=== PATIENT | female | born 1960 | race Caucasian/White ===

== ENCOUNTER → 2018-06-02 13:02 | Outpatient (POV) | payer MEDICARE, BC, SELFPAY ==
[2018-06-02 14:58] LABS: Anion Gap 14.4 mEq/L (5-15); Blood Urea Nitrogen 16 mg/dL (7-18); Calcium 8.4 mg/dL (8.5-10.1); Carbon Dioxide 26 mmol/L (21.0-32.0); Chloride 104 mmol/L (98-107); Creatinine,Serum 0.58 mg/dL (0.55-1.02); Estimated Glomerular Filt Rate 106 ml/min (>60); GFR (African American) 129 ML/MIN (>60); Glucose 104 mg/dL (74-106); Potassium 4.4 mmoL/L (3.5-5.1); Sodium 140 mmol/L (136-145)
== END ==
PROVIDERS: Visit Provider Nurse Practitioner Acute Care
DX: R10.9 Unspecified abdominal pain (principal)
CPT/HCPCS: 36415; 80048

== ENCOUNTER → 2018-06-11 08:53 | Outpatient (CLI) | payer MEDICARE, BC, SELFPAY ==
--- NOTE | 2018-06-11 08:55 | CT_ITS ---
CT abdomen pelvis w con CLINICAL INDICATION: Left-sided abdominal pain, change in bowel habits ITS.REASON: ABD PAIN, CHANGE IN BOWL HABITS ORDERING PHYSICIAN: Shelia Hager PATIENT AGE: 58 years COMPARISON: 08/09/2017 TECHNIQUE: Axial images obtained with sagittal and coronal reformats. All CT scans at the facility use one or more dose reduction, viz: automated exposure control, ma/kV adjustment per patient size (including targeted exams where dose is matched to indication, i.e. head), or iterative reconstruction technique. PROCEDURE: Oral Contrast: Redicat IV Contrast: 75 mL Isovue-370. FINDINGS: Lower thorax: 3 mm nodular opacity right lung base anteriorly nonspecific. There are mild fibrotic changes in the left lung base The liver, spleen, adrenal glands, gallbladder, and kidneys have an unremarkable appearance. There is a mild amount of retained colonic feces throughout the colon. No evidence of intestinal obstruction or free air. The appendix has an unremarkable appearance. Post hysterectomy changes. No acute bony findings. Small sclerotic density involves the L2 vertebral body which may represent bone island unchanged IMPRESSION: No change with no acute finding. Moderate amount retained colonic feces throughout colon.
== END ==
PROVIDERS: PCP Family Medicine; Visit Provider Nurse Practitioner Acute Care
DX: R10.9 Unspecified abdominal pain (principal); R19.4 Change in bowel habit
CPT/HCPCS: 74177; Q9967

== ENCOUNTER → 2019-03-16 10:09 | Outpatient (POV) | payer MEDICARE, BC, SELFPAY | PROVIDERS: Visit Provider Nurse Practitioner Family | DX: Z00.00 Encounter for general adult medical examination without abnormal findings (principal) ==

== ENCOUNTER → 2021-03-13 10:02 | Outpatient (CLI) | payer MEDICARE, BC, SELFPAY ==
--- NOTE | 2021-03-13 10:08 | CT_ITS ---
PROCEDURE: CT ABDOMEN PELVIS W CON CLINICAL INDICATION: ABD PAIN COMPARISON: CT ABDPELW CT abdomen pelvis w con from 06/11/2018 TECHNIQUE: IV Contrast: 75ML Isovue 370 Oral Contrast 450ml Redicat Axial images obtained with sagittal and coronal reformats. All CT scans at the facility use one or more dose reduction, viz: automated exposure control, ma/kV adjustment per patient size (including targeted exams where dose is matched to indication, i.e. head), or iterative reconstruction technique. FINDINGS: LOWER THORAX: No acute finding ABDOMEN & PELVIS: The liver, spleen, adrenal glands, and pancreas have an unremarkable appearance. No renal or ureteral calculi apparent. Gallbladder appears slightly contracted with mildly thickened wall. No intestinal obstruction or free air. No evidence of appendicitis. No evidence of diverticulitis. There is some minimal haziness of the mesenteric fat inferior to the splenic flexure. This is nonspecific and could represent an area of fat necrosis or epiploic appendagitis. This does not have a typical appearance for diverticulitis. No diverticula are identified. Prior hysterectomy. No pelvic mass or abnormal fluid collection. There is a sclerotic focus involving the L2 vertebral body and may represent a bone island not significantly changed. IMPRESSION: 1. Small area of haziness of the mesenteric fat inferior to the splenic flexure non specific and could represent a small area of fat necrosis or epiploic appendagitis. 2. No other significant anomalies evident. Dictated by: Edilberto De Leon MD 03/14/2021 15:00 Edilberto De Leon MD in [place] 03/14/2021 15:00
== END ==
PROVIDERS: PCP Family Medicine; Visit Provider Family Medicine
DX: R10.9 Unspecified abdominal pain (principal)
CPT/HCPCS: 74177; Q9967

== ENCOUNTER 2021-05-01 18:47 | Emergency (ER) | payer MEDICARE, BC, SELFPAY ==
[2021-05-01 18:47] VITALS: BP 97/48; PULSE 77; RESP 18; TEMP 37.1; O2SAT 96; BMI 28.0
[2021-05-01 18:58] VITALS: BP 97/48; PULSE 77; RESP 18; TEMP 37.1; O2SAT 96; BMI 28.2
--- NOTE | 2021-05-01 19:28 | [facility].EDGENADL ---
ED Disposition Clinical Impression: Left hip pain Low back pain Qualifiers: Chronicity: chronic Back pain laterality: left Sciatica presence: with sciatica Sciatica laterality: sciatica of left side Qualified Code(s): M54.42 - Lumbago with sciatica, left side Disposition: Home, Self-Care Condition on Discharge: Fair Instructions: DI for Low Back Pain, DI for Hip Pain Additional Instructions: You have been evaluated for left hip pain. Likely due to arthritic changes and nerve impingement. Please take prednisone taper. Use Voltaren gel. Use heat, stretching exercises. Follow-up with your primary care doctor in 1 to 2 days. Return to the emergency department for any new or worsening symptoms. Prescriptions: predniSONE [Prednisone 10mg Tab Dose-Pack] 10 mg PO DAILY #15 predniSONE [Prednisone 10mg Tab Dose-Pack] 10 mg PO DAILY 5 Days #15 tab Transmission Status: Received by [id number] - [facility] Diclofenac Sodium [Voltaren Arthritis Pain] 20 gm TP TID #300 gm Transmission Status: Received by [id number] - [employer] [employer] Referrals: Gilbert Emerson MD [Primary Care Provider] - Time of Disposition: 23:08 - Critical Care Critical Care Time: No Attestation: On 05/01/21, the high probability of a clinically significant, sudden or life threatening deterioration of the following system(s) required my full and direct attention, intervention and personal management. The time I documented below is in addition to time spent performing reported procedures but includes the following listed in this critical care notation. Medical Decision Making - Medical Records Medical records reviewed: Yes: I reviewed the patient's medical records. - Srinath Inquiry Pt receiving controlled substance: No Vital Signs: 05/01/21 18:47 05/01/21 18:58 Temperature 98.7 F 98.7 F Temperature Source Oral Oral Pulse Rate [Right] 77 77 Respiratory Rate 18 18 Blood Pressure [Right Arm] 97/48 L 97/48 L Blood Pressure Mean [Right Arm] 64 64 02 Sat by Pulse Oximetry 96 96 Orders (Tests/Meds): ED MEDICATIONS Discontinued Medications Generic Name Dose Route Start Last Admin Trade Name Freq PRN Reason Stop Dose Admin Hydrocodone Bitart/Acetaminophen 1 tab 05/01/21 21:43 05/01/21 21:58 Hydrocodone/Apap 5/325 Mg Tablet PO 05/01/21 21:44 1 tab ONCE ONE Administration Ibuprofen 800 mg 05/01/21 23:25 05/01/21 23:27 Ibuprofen 400 Mg Tablet PO 05/01/21 23:26 800 mg ONCE ONE Administration Methocarbamol 500 mg 05/01/21 20:37 05/01/21 20:52 Methocarbamol 500mg Tablet PO 05/01/21 20:38 500 mg ONCE ONE Administration Methylprednisolone Acetate 40 mg 05/01/21 19:29 05/01/21 20:05 Methylprednisolone Acetate 40mg/Ml Vial IM 05/01/21 19:30 40 mg ONCE ONE Administration Morphine Sulfate 8 mg 05/01/21 19:28 05/01/21 20:00 Morphine 2mg/Ml Syringe IM 05/01/21 19:29 8 mg ONCE ONE Administration Morphine Sulfate 4 mg 05/01/21 20:37 05/01/21 20:52 Morphine 2mg/Ml Syringe IM 05/01/21 20:38 4 mg ONCE ONE Administration - CT Data CT Scan: Pelvis Time Received: 23:[address] Reviewed: Yes: I have reviewed the patient's CT results, I have viewed the radiologist's interpretation Preliminary Findings: Normal/NAD Findings Narrative: IMPRESSION: 1. No acute fracture. 2. Other chronic findings as above. Medical Decision Narrative: In summary this is a previously healthy 61-year-old female presenting to the emergency department with low back pain radiating to the left hip. Patient appears uncomfortable on arrival, clinically stable. Most likely diagnosis is musculoskeletal pain, spasm. Will treat presumptively with IM morphine and steroid. On reassessment she continues to have fairly severe pain. Given additional dose of intramuscular morphine. X-rays of the left hip and pelvis obtained. X-ray somewhat abnormal, no clear fracture. CT bony pelvis obtained.
--- NOTE | 2021-05-01 21:42 | XR_ITS ---
PROCEDURE INFORMATION: Exam: XR Left Hip Exam date and time: 05/01/2021 9:42 PM Age: 61 years old Clinical indication: Patient HX: Left hip pain, no injury. TECHNIQUE: Imaging protocol: XR Left hip. Views: 2 or 3 views hip with pelvis when performed. COMPARISON: CT ABDOMEN PELVIS W CON 03/13/2021 10:49 AM FINDINGS: Bones/joints: Osteopenia. No acute displaced fracture. No dislocation. Minimal degenerative spurring of the hips and SI joints. 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 Lower lumbar spondylosis. Soft tissues: Unremarkable. IMPRESSION: No acute finding.
--- NOTE | 2021-05-01 21:42 | XR_ITS ---
PROCEDURE INFORMATION: Exam: XR Lumbosacral Spine Exam date and time: 05/01/2021 9:42 PM Age: 61 years old Clinical indication: Other: Left hip pain, no injury. TECHNIQUE: Imaging protocol: XR of the lumbosacral spine. Views: 2 or 3 views. COMPARISON: CR XR HIP LT 2-3V W/PELVIS 05/01/2021 9:43 PM FINDINGS: Bones/joints: Lumbar vertebral body heights are maintained. There is no evidence of acute fracture. Mild dextroconvex curvature centered at L1-L2. Mild right lateral listhesis and grade 1 retrolisthesis of L2 on L3. Mild grade 1 retrolisthesis at L1-L2. Findings are similar to CT study of 03/13/2021. Soft tissues: Unremarkable. Vasculature: Scattered atherosclerotic calcifications. IMPRESSION: 1. No acute finding. 2. Mild dextroconvex curvature and degenerative malalignment. Spondylosis.
--- NOTE | 2021-05-01 22:16 | CT_ITS ---
PROCEDURE INFORMATION: Exam: CT Pelvis Without Contrast; Skeletal Exam date and time: 05/01/2021 10:16 PM Age: 61 years old Clinical indication: Hip pain; Left hip; Additional info: Left hip pain TECHNIQUE: Imaging protocol: Computed tomography images of the pelvis without contrast. Exam focused on the skeletal structures. Radiation optimization: All CT scans at this facility use at least one of these dose optimization techniques: automated exposure control; mA and/or kV adjustment per patient size (includes targeted exams where dose is matched to clinical indication); or iterative reconstruction. COMPARISON: CT ABDOMEN PELVIS W CON 03/13/2021 10:49 AM FINDINGS: Stomach and bowel: Distal colonic diverticulosis. Reproductive: Hysterectomy. Vasculature: Scattered atherosclerotic calcifications. Bones/joints: No acute fracture. No dislocation. Minimal degenerative spurring of the bilateral hips and SI joints, as well as the pubic symphysis. [id number] lower lumbar degenerative changes and neural foraminal narrowing. Mild spinal canal stenosis suggested at L3-L4 and L4-L5. Soft tissues: Visualized muscles appear within normal limits, without acute finding. Small fat containing umbilical and right femoral hernias. Question a prior left inguinal/femoral herniorrhaphy. There are small foci of subcutaneous edema and gas in the bilateral gluteal regions, likely representing subcutaneous injection sites. IMPRESSION: 1. No acute fracture. 2. Other chronic findings as above.
--- NOTE | 2021-05-01 22:43 | PC.NURSE ---
Updated family. Pt is in ct scan.
[2021-05-01 23:40] VITALS: BP 105/60; PULSE 80; RESP 20; TEMP 36.8; O2SAT 99
== END 2021-05-01 23:43 | disposition home or self-care (01) ==
LOC: ER 18:58 → UTC 18:59 → ER 19:11
PROVIDERS: Emergency Provider Emergency Medicine; PCP Family Medicine
DX: M25.552 Pain in left hip (principal); M54.42 Lumbago with sciatica, left side; J44.9 Chronic obstructive pulmonary disease, unspecified; K21.9 Gastro-esophageal reflux disease without esophagitis; I10 Essential (primary) hypertension; F17.210 Nicotine dependence, cigarettes, uncomplicated; Z88.0 Allergy status to penicillin
CPT/HCPCS: 72100; 72192; 73502; 96372; 99282; J1030

== ENCOUNTER → 2022-07-13 11:31 | Outpatient (CLI) | payer MEDICARE, BC, SELFPAY ==
--- NOTE | 2022-07-13 11:58 | XR_ITS ---
FINAL REPORT CLINICAL HISTORY: RT RIB PAIN FINDINGS: Two views of the chest were obtained. The heart size and pulmonary vascularity are within normal limits. The mediastinum is normal. No acute pulmonary abnormality is identified. There is no pneumothorax. The bony thorax is intact. IMPRESSION: No active cardiopulmonary disease. Reviewed, Interpreted and Dictated by Sanket Jones III, MD Transcribed by Sissy Minor Authenticated and [facility]
== END ==
PROVIDERS: PCP Family Medicine; Visit Provider Family Medicine
DX: R07.81 Pleurodynia (principal)
CPT/HCPCS: 71046

== ENCOUNTER 2023-06-07 15:06 | Emergency (ER) | payer MEDICARE, BC, SELFPAY ==
[2023-06-07 15:08] VITALS: BP 150/88; PULSE 84; RESP 16; TEMP 36.7; O2SAT 96; BMI 25.9
--- NOTE | 2023-06-07 15:15 | ECG_ITS ---
APPROVED REPORT Exam: Resting ECG HR:91 bpm ECG Measurements Heart Rate 91 AXES NE 165 P 62 QRSd 98 QRS 66 QT 364 T 71 QTc 413 Conclusion SINUS RHYTHM Electronically signed by : MARILYN MCKINNEY, 06/09/2023 02:57:46
--- NOTE | 2023-06-07 15:19 | PC.NURSE ---
in room talking with patient at this time.
--- NOTE | 2023-06-07 15:25 | XR_ITS ---
FINAL REPORT CLINICAL HISTORY: Shortness of breath COMPARISON: 07/13/2022 FINDINGS: A single portable view of the chest was obtained. The heart size and pulmonary vascularity are within normal limits. The mediastinum is within normal limits. No acute pulmonary abnormality is identified. The bony thorax is intact. IMPRESSION: No active cardiopulmonary disease. Reviewed, Interpreted and Dictated by Sanket Jones III, MD Transcribed by Dora Anguiano Authenticated and [facility]
--- NOTE | 2023-06-07 15:28 | [facility].EDCP ---
Discharge Plan Disposition Patient Disposition: Home, Self-Care Prescriptions Prescriptions: New atorvastatin 40 mg tablet 40 mg PO DAILY Qty: 30 1RF No Action prednisone 10 MG tablets,dose pack 10 mg PO DAILY Qty: 15 0RF diclofenac sodium 20 GM gel 20 gm TP TID Qty: 300 0RF prednisone 10 MG tablets,dose pack 10 mg PO DAILY 5 Days Qty: 15 0RF Rx Instructions: Take 5 tabs on day 1, 4 tabs on day 2, 3 tabs on day 3, 2 tabs on day 4, 1 tab on day 5 fluoxetine [Prozac] 40 MG capsule 20 mg PO TID aspirin [Aspir-81] 81 MG tablet,delayed release (DR/EC) 81 mg PO HS lisinopril 10 MG tablet 10 mg PO DAILY conjugated estrogens [Premarin] 0.625 MG tablet 0.625 mg PO HS lansoprazole [Prevacid] 15 MG capsule,delayed release(DR/EC) 20 mg PO HS diphenhydramine HCl [Benadryl] 25 MG capsule 75 mg PO HS fluticasone propion-salmeterol [Advair Diskus] 28 PUFFS blister with device 1 inh inhalation DAILY Rx Instructions: DOSAGE PT TAKES ADVAIR 250/50 glycopyrrolate-formoterol [Bevespi Aerosphere] 10.7 GM HFA aerosol inhaler 1 puff inhalation DAILY Referrals Follow up/Referrals: Gilbert Emerson MD [Primary Care Provider] - See instructions Bryn De Leon MD [Staff Physician] - See instructions Activity Restrictions/Add. Instructions Additional Instructions/Restrictions: Follow-up with cardiology for further stress testing and potential catheterization. Take atorvastatin daily, this has been sent to the pharmacy of choice. Call your family doctor to establish care for this visit to the emergency department and schedule follow-up within 48 hours to ensure improvement. If you have any worsening of your condition or any other concerning signs or symptoms, return to the emergency department or your primary care doctor for further evaluation. Clinical Impressions Clinical Impression: Chest pain, ASHANTI (acute kidney injury), Acute dehydration, Shortness of breath Discharge ED Provider: Ottoniel Queen HPI General Chief Complaint: Shortness of Breath/Dyspnea Stated Complaint: SOA Time Seen by Provider: 06/07/23 15:13 History of Present Illness HPI narrative: This is a 63-year-old female with history of hypertension, hyperlipidemia, diabetes, COPD not currently smoking presenting with shortness of breath with exertion. She states this has been going on for about 2 days. She recently had medications changed around. Had amlodipine dropped from 10 mg to 5 mg and started triamterene/HCTZ about a week prior to this. This was due to lower extremity edema. Edema has improved since that time. Patient states that for the past 2 days, she has felt short of breath with minimal exertion. Associated with this is a burning, epigastric/substernal chest pressure that does not radiate. This is also better with rest. Patient states that when she tries to push through it, she feels nauseated, but denies diaphoresis or syncope. Was instructed to come to the emergency department by her cardiology clinic in [place]. Patient denies stimulant use, but states that she takes delta 9 Gummies daily to help calm me down. Related Data Home Medications Medication Instructions Recorded Confirmed aspirin 81 mg tablet,delayed 81 mg PO HS heart health 08/09/17 04/11/18 release (Aspir-) conjugated estrogens 0.625 mg 0.625 mg PO HS hormone 08/09/17 04/11/18 tablet (Premarin) fluoxetine 40 mg capsule (Prozac) 20 mg PO TID Depression 08/09/17 04/11/18 lansoprazole 15 mg capsule,delayed 20 mg PO HS Heartburn 08/09/17 04/11/18 release (Prevacid) lisinopril 10 mg tablet 10 mg PO DAILY hs 08/09/17 04/11/18 diphenhydramine HCl 25 mg capsule 75 mg PO HS SLEEP 04/10/18 04/11/18 (Benadryl) fluticasone 100 mcg-salmeterol 50 1 inh inhalation DAILY COPD 04/10/18 04/11/18 mcg/dose blistr powdr for inhalation (Advair Diskus) glycopyrrolate 9 mcg-formoterol 1 puff inhalation DAILY COPD 04/10/18 04/11/18 4.8 mcg HFA aerosol inhaler (Bevespi Aerosphere) Previous Rx's Medication Instructions Recorded diclofenac sodium 1 % topical gel 20 gm TP TID ##300 05/01/21 prednisone 10 mg tablets in a dose 10 mg PO DAILY ##15 05/01/21 pack prednisone 10 mg tablets in a dose 10 mg PO DAILY 5 days #15 tabs 05/01/21 pack atorvastatin 40 mg tablet 40 mg PO DAILY #30 tabs 06/07/23 Allergies Allergy/AdvReac Type Severity Reaction Status Date / Time Penicillins Allergy Intermediate Hives Verified 08/09/17 10:15 NSAIDS (Non-Steroidal AdvReac Mild Diarrhea Verified 08/09/17 10:15 Anti-Inflamma PFSH [facility] Disclaimer: The information contained in this section may have been updated after the patient was seen, as this information can be updated by other users. Social History Smoking Status: Former smoker tobacco type: cigarettes packs per day: 1 alcohol intake: current substance use type: marijuana current occupational status: employed Travel in the last 8 weeks: None caffeine: Yes ROS Obtained: Yes All systems reviewed & no additional complaints except as documented Physical Exam General General appearance: alert and anxious (Tremulous and mildly pressured speech) Neck Neck exam: Present trachea midline Chest Chest inspection: Present normal inspection and symmetric chest wall rise Respiratory Respiratory exam: Present normal lung sounds bilaterally; Absent respiratory distress, wheezes, stridor, accessory muscle use or prolonged expiratory phase Cardiovascular Cardiovascular exam: Present regular rate, normal rhythm and normal heart sounds Abdominal Exam Abdominal exam: Present soft; Absent distention, tenderness, guarding, rebound or rigidity Extremities Exam Extremities exam: Present edema (1+ lower extremity pitting edema) Neurological Exam Neurological exam: Present alert, oriented X3, CN II-XII intact and normal gait; Absent motor sensory deficit Psychiatric Psychiatric exam: Present anxious Skin Skin exam: Present warm and dry; Absent cyanosis, diaphoresis or pallor HEART Score HEART Score HEART Score assessment performed?: Yes History (anamnesis): Moderately suspicious ECG: Normal Age: 45-65 years Risk factors: 3 or more risk factors Troponin: </= normal limit HEART Score: 4 Critical Care Critical Care Time Critical Care Time: No Medical Decision Making Medical Records Medical records reviewed: Yes I reviewed the patient's medical records. Srinath Inquiry Pt receiving controlled substance: No Srinath was queried for this patient: No Vital Signs Vital Signs: 06/07/23 15:08 06/07/23 15:41 06/07/23 16:00 Temperature 98.0 F Temperature Source Oral Pulse Rate 85 66 Pulse Rate [Left Radial] 84 Respiratory Rate 16 19 15 Blood Pressure 150/88 H 126/109 H Blood Pressure [Right Arm] 150/88 H Blood Pressure Mean [Right Arm] 108 02 Sat by Pulse Oximetry 96 98 95 Oxygen Delivery Method Room Air 06/07/23 16:30 Temperature Temperature Source Pulse Rate 85 Pulse Rate [Left Radial] Respiratory Rate 18 Blood Pressure 122/87 Blood Pressure [Right Arm] Blood Pressure Mean [Right Arm] 02 Sat by Pulse Oximetry 97 Oxygen Delivery Method Lab Data Labs: Lab Results 06/07/23 15:47: SARS-CoV-2 (PCR) Not detected, Influenza A Untype (PCR) Not detected, Influenza Type B (PCR) Not detected 06/07/23 16:00: WBC 12.8 H, RBC 4.48, Hgb 16.1, Hct 48.3 H, MCV 108.0 H, MCH 36.0 H, MCHC 33.3, RDW 13.8, Plt Count 380, MPV 8.6, Neut % (Auto) 79.0, Lymph % (Auto) 11.5, Lares % (Auto) 7.6, Eos % (Auto) 1.3, Baso % (Auto) 0.6, Neut # (Auto) 10.1 H, Lymph # (Auto) 1.5, Lares # (Auto) 1.0, Eos # (Auto) 0.2, Baso # (Auto) 0.1, Sodium 122 L, Potassium 4.9, Chloride 88 L, Carbon Dioxide 18 L, Anion Gap 20.9 H, BUN 24 H, Creatinine 1.60 H, Estimated Creat Clear 41, Estimated GFR 32 L, Est GFR ( Amer) 39 L, Glucose 95, Hemoglobin A1c 5.1, Lactate 1.8, Calcium 10.3 H, Magnesium 1.9, Total Bilirubin 1.2, AST 63 H, ALT 68, Alkaline Phosphatase 264 H, Troponin I < 0.01, NT-Pro-B Natriuret Pep 465 H, Total Protein 8.5 H, Albumin 4.8, Globulin 3.7 H, Albumin/Globulin Ratio 1.3, Triglycerides 319 H, Cholesterol 428 H, LDL Cholesterol Direct 202.24 H, VLDL Cholesterol 64 H, HDL Cholesterol 86 H, Cholesterol/HDL Ratio 5.0 H, Lipase 105, TSH 3.54, Thyroxine (T4) 10.3 06/07/23 16:00 06/07/23 16:00 Response Orders (Tests/Meds): ED MEDICATIONS Discontinued Medications Generic Name Dose Route Start Last Admin Trade Name Mario PRN Reason Stop Dose Admin Aspirin 324 mg 06/07/23 15:25 06/07/23 15:46 Aspirin 81mg Chewable Tablet PO 06/07/23 15:26 324 mg ONCE ONE Administration Lactated Ringer's 1,000 mls @ 999 mls/hr 06/07/23 16:18 06/07/23 16:32 Lactated Ringer's 1000 Ml Bag IV 06/07/23 17:18 999 mls/hr .Q1H1M ONE Administration ORDERS Category Date Time Status XR chest portable Stat Exams 06/07/23 15:25 Completed Brain Natriuretic Peptide Stat Lab 06/07/23 16:00 Completed Complete Blood Count Auto Diff Stat Lab 06/07/23 16:00 Completed Comprehensive Metabolic Panel Stat Lab 06/07/23 16:00 Completed Hemoglobin A1C Stat Lab 06/07/23 16:00 Completed Lactic Acid Stat Lab 06/07/23 16:00 Completed Lipase Stat Lab 06/07/23 16:00 Completed Lipid Panel Stat Lab 06/07/23 16:00 Completed Magnesium Stat Lab 06/07/23 16:00 Completed Rapid PCR Covid and Flu A/B Stat Lab 06/07/23 15:47 Completed T4 (Thyroxine) Stat Lab 06/07/23 16:00 Completed TSH [Thyroid Stimulating Hormone] Stat Lab 06/07/23 16:00 Completed Troponin I Q3H Lab 06/07/23 18:30 Ordered Troponin I Q3H Lab 06/07/23 21:30 Ordered Troponin I Stat Lab 06/07/23 16:00 Completed MDM Narrative Medical Decision Narrative: This is a 63-year-old female with history of hypertension, hyperlipidemia, diabetes, COPD not currently smoking presenting with shortness of breath with exertion. She states this has been going on for about 2 days. She recently had medications changed around. Had amlodipine dropped from 10 mg to 5 mg and started triamterene/HCTZ about a week prior to this. This was due to lower extremity edema. Edema has improved since that time. Patient states that for the past 2 days, she has felt short of breath with minimal exertion. Associated with this is a burning, epigastric/substernal chest pressure that does not radiate. This is also better with rest. Patient states that when she tries to push through it, she feels nauseated, but denies diaphoresis or syncope. Was instructed to come to the emergency department by her cardiology clinic in [place]. Patient denies stimulant use, but states that she takes delta 9 Gummies daily to help calm me down. . It should be noted the patient is taking stli-[id number] delta 9 THC supplements, and multiple recent medication changes for blood pressure which is likely complicating care. History was obtained via conversation with patient and . On arrival, patient hemodynamically stable, alert, oriented x4, appropriate, GCS 15, moving all extremities spontaneously, pupils equal and reactive to light. Full physical exam performed and significant for anxious appearing woman who is tremulous at baseline. Pressured speech. Nontachycardic, normotensive, afebrile. 1+ lower extremity pitting edema. She does not have any abnormal cardiac findings otherwise. Lungs are clear to auscultation bilaterally without focal breath sounds. No palpable/pulsatile abdominal mass. Neurovascularly intact. Differential includes microvascular coronary artery disease, CHF, ACS, WI, coronary artery dissection, pneumothorax, PE, dissection, pericarditis, myocarditis, pneumothorax, aortic aneurysm, pneumonia, bronchitis, among others. Patient was given 324 mg aspirin p.o. for symptomatic management and correction of underlying abnormalities. Workup independently interpreted and significant for nonactionable CBC. Chemistry with my tachycardia, patient was given liter of fluids for this. Troponin normal, BNP nonactionable. Patient does have hypercholesterolemia, med will be sent to pharmacy. Chest x-ray without acute cardiopulmonary airspace disease see radiology read for full review of final results. Independent interpretation of EKG shows sinus rhythm 91 beats a minute. No ST or T wave changes concerning for acute ischemia. ND, QRS, QT intervals within normal limits. [place] normal. Patient placed on continuous cardiac monitoring and continuous pulse ox with initial blood pressure 150/88, heart rate 84, saturation 96 on room air. Heart score 4. On reevaluation, patient resting comfortably in bed. Given patient presentation, workup, history, this most likely represents chest pain, undifferentiated. Because patient does have multiple risk factors, atorvastatin was sent to the pharmacy. It was recommended that she follow-up with outpatient cardiology, she voiced her understanding. Cardiology referral placed here. Because patient at baseline without signs or symptoms of clinical decompensation, deemed appropriate for discharge. Results were relayed to patient who voiced understanding and were agreeable to outpatient management and follow up. At the time of discharge the patient was hemodynamically stable, tolerating PO, and mobilizing appropriately.
[2023-06-07 15:41] VITALS: BP 150/88; PULSE 85; RESP 19; O2SAT 98
[2023-06-07] MEDS: ASPIRIN 81MG CHEWABLE TABLET 324 MG PO (15:46)
[2023-06-07 15:52] LABS: Coronavirus 19, PCR Not Detected (NotDetected); Influenza A, PCR Not Detected (NotDetected); Influenza B, PCR Not Detected (NotDetected)
[2023-06-07 16:00] VITALS: BP 126/109; PULSE 66; RESP 15; O2SAT 95
[2023-06-07 16:15] LABS: Basophils # 0.1 K/mm3 (0-0.2); Basophils % 0.6 % (0.1-2.0); Eosinophils # 0.2 K/mm3 (0.0-0.4); Eosinophils % 1.3 % (0.1-12.0); Hematocrit 48.3 % (37.0-47.0); Hemoglobin 16.1 g/dL (12.2-16.2); Lymphocytes # 1.5 K/mm3 (0.7-4.5); Lymphocytes % 11.5 % (10-50); Mean Corpuscular HGB Conc 33.3 g/dL (31.8-35.4); Mean Platelet Volume 8.6 fl (7.4-10.4); Monocytes % 7.6 % (1.7-9.3); Neutrophils # 10.1 K/mm3 (1.8-7.8); Platelet Count 380 K/mm3 (142-424); Red Blood Count 4.48 M/mm3 (4.20-5.40); Red Cell Distribution Width 13.8 % (11.5-17.5); White Blood Count 12.8 K/mm3 (4.8-10.8)
[2023-06-07 16:21] LABS: Chloride 88 mmol/L (98-107); Potassium 4.9 mmoL/L (3.5-5.1); Sodium 122 mmol/L (136-145)
[2023-06-07 16:23] LABS: Alanine Aminotransferase 68 U/L (12-78); Albumin Level 4.8 g/dl (3.5-5.0); Albumin/Globulin Ratio 1.3 (1.1-1.8); Alkaline Phosphatase 264 U/L (38-126); Anion Gap 20.9 mEq/L (5-15); Aspartate Amino Transferase 63 U/L (14-36); Bilirubin,Total 1.2 mg/dl (0.2-1.3); Blood Urea Nitrogen 24 mg/dl (7-17); Carbon Dioxide 18 mmol/L (22.0-30.0); Creatinine Clearance Estimated 41 mL/min (50-200); Estimated Glomerular Filt Rate 32 ml/min (>60); GFR (African American) 39 ML/MIN (>60); Globulin 3.7 g/dL (1.3-3.2); Lipase 105 U/L (23-300); Total Protein,Serum 8.5 g/dl (6.3-8.2)
[2023-06-07 16:24] LABS: Calcium 10.3 mg/dl (8.4-10.2); Glucose 95 mg/dl (74-100); HDL Cholesterol 86 mg/dl (40-60); Magnesium 1.9 mg/dl (1.6-2.3); Triglycerides 319 mg/dl (30-150); VLDL Cholesterol 64 mg/dL (0-40)
[2023-06-07 16:25] LABS: Lactic Acid 1.8 mmol/L (0.7-2.1)
[2023-06-07 16:30] VITALS: BP 122/87; PULSE 85; RESP 18; O2SAT 97
[2023-06-07 16:32] LABS: Cholesterol 428 mg/dl (140-200)
[2023-06-07] MEDS: LACTATED RINGERS 1000ML 1,000 ML 999 ML IV (16:32)
[2023-06-07 16:35] LABS: Direct LDL Cholesterol 202.24 mg/dL (100-129)
[2023-06-07 16:36] LABS: NT Pro Brain Natriuretic Pep. 465 pg/mL (0-125)
[2023-06-07 16:41] LABS: Troponin I < 0.01 ng/ml (0.00-0.034)
[2023-06-07 16:43] LABS: T4 (Thyroxine) 10.3 ug/dl (5.53-11.0)
[2023-06-07 16:53] LABS: Hemoglobin A1C 5.1 % (4.0-6.0)
[2023-06-07 16:57] LABS: Thyroid Stimulating Hormone 3.54 uIU/mL (0.465-4.68)
--- NOTE | 2023-06-07 17:17 | PC.NURSE ---
patient provided blanket at this time.
--- NOTE | 2023-06-07 17:38 | PC.NURSE ---
DR MCKINNEY SPEAKING WITH DR VANESSA
[2023-06-07 17:49] VITALS: BP 122/87; PULSE 87; RESP 16; TEMP 36.7
== END 2023-06-07 17:52 | disposition home or self-care (01) ==
PROVIDERS: Emergency Provider Emergency Medicine; PCP Family Medicine
DX: N17.9 Acute kidney failure, unspecified (principal); R07.9 Chest pain, unspecified; E86.0 Dehydration; R06.02 Shortness of breath; I10 Essential (primary) hypertension; E78.5 Hyperlipidemia, unspecified; E11.9 Type 2 diabetes mellitus without complications; J44.9 Chronic obstructive pulmonary disease, unspecified; R60.9 Edema, unspecified; Z87.891 Personal history of nicotine dependence
CPT/HCPCS: 71045; 80053; 80061; 83036; 83605; 83690; 83735; 83880; 84436; 84443; 84484; 85025; 87636; 93005; 96360; 99285

== ENCOUNTER 2023-06-10 14:07 | Outpatient (CLI) | payer MEDICARE, BC, SELFPAY ==
[2023-06-10 15:07] LABS: Basophils # 0.2 K/mm3 (0-0.2); Basophils % 1.8 % (0.1-2.0); Eosinophils # 0.1 K/mm3 (0.0-0.4); Eosinophils % 1.1 % (0.1-12.0); Hematocrit 48.9 % (37.0-47.0); Hemoglobin 15.9 g/dL (12.2-16.2); Lymphocytes # 1.3 K/mm3 (0.7-4.5); Lymphocytes % 10.9 % (10-50); Mean Corpuscular HGB Conc 32.6 g/dL (31.8-35.4); Mean Corpuscular Hemoglobin 35.9 pg (27.0-31.2); Mean Corpuscular Volume 110.3 fl (81-99); Mean Platelet Volume 8.1 fl (7.4-10.4); Monocytes # 0.9 K/mm3 (0.1-1.0); Monocytes % 7.3 % (1.7-9.3); Neutrophils # 9.5 K/mm3 (1.8-7.8); Neutrophils % 78.8 % (37.0-80.0); Platelet Count 393 K/mm3 (142-424); Red Blood Count 4.43 M/mm3 (4.20-5.40); Red Cell Distribution Width 13.7 % (11.5-17.5); White Blood Count 12.1 K/mm3 (4.8-10.8)
[2023-06-10 15:21] LABS: D-Dimer 0.85 ug/mL (0.0-0.5)
[2023-06-10 15:52] LABS: Alanine Aminotransferase 56 U/L (12-78); Albumin Level 4.6 g/dl (3.5-5.0); Alkaline Phosphatase 203 U/L (38-126); Aspartate Amino Transferase 55 U/L (14-36); Bilirubin,Direct 0.3 mg/dl (0.0-0.4); Bilirubin,Indirect 0.3 mg/dL (0.0-0.9); Bilirubin,Total 0.6 mg/dl (0.2-1.3); Bilirubin,Unconjugated 0.3 mg/dL (0.0-1.1); Blood Urea Nitrogen 16 mg/dl (7-17); Calcium 10.5 mg/dl (8.4-10.2); Carbon Dioxide 15 mmol/L (22.0-30.0); Chloride 92 mmol/L (98-107); Creatine Kinase 50 U/L (30-135); Estimated Glomerular Filt Rate 56 ml/min (>60); GFR (African American) 68 ML/MIN (>60); Glucose 95 mg/dl (74-100); Sodium 124 mmol/L (136-145)
[2023-06-10 16:03] LABS: NT Pro Brain Natriuretic Pep. 5430 pg/mL (0-125)
== END 2023-06-10 23:59 ==
PROVIDERS: PCP Family Medicine; Visit Provider Internal Medicine
DX: R06.00 Dyspnea, unspecified (principal); I20.89 Other forms of angina pectoris; E87.1 Hypo-osmolality and hyponatremia; N17.9 Acute kidney failure, unspecified
CPT/HCPCS: 36415; 80048; 80076; 82550; 83880; 84484; 85025; 85378

== ENCOUNTER 2023-06-11 12:23 | Outpatient (CLI) | payer MEDICARE, BC, SELFPAY ==
[2023-06-11 13:07] LABS: Troponin I 0.02 ng/ml (0.00-0.034)
== END 2023-06-11 23:59 ==
PROVIDERS: PCP Family Medicine; Visit Provider Nurse Practitioner
DX: R07.9 Chest pain, unspecified (principal)
CPT/HCPCS: 36415; 84484

== ENCOUNTER 2023-06-14 07:15 | Outpatient (CLI) | payer MEDICARE, BC, SELFPAY ==
--- NOTE | 2023-06-14 07:15 | NM_ITS ---
APPROVED REPORT Exam: Nuclear Stress Test Indication: HYPERTENSION, HYPERLIPIDEMIA, FM HX, SOB, PALPITATIOINS, FATIGUE Patient Location: Inpatient Stress Tech: Ramona Mccray MD Tech:Priyanka Albarado ARRT RT (R)(N)(M) Ht: 5 ft 6 in Wt: 158 lbs Bra Size: 36D HR: 68 bpm BP: 160/70 mmHg BSA: 1.81 m2 TID: 1.36 BMI: 25.4 History: HYPERTENSION, HYPERLIPIDEMIA, FM HX, SOB, PALPITATIOINS, FATIGUE Procedure: Patient received 0.4 mg of intravenous Lexiscan, resting heart rate 68 bpm, resting blood pressure 160/70 mmHg, with Lexiscan maximum heart rate achieved was 88 bpm which is % of the maximum predicted heart rate and blood pressure was 178/90 mmHg. Cardiac Stress and Resting SPECT Images: Cardiac Stress and Resting SPECT images were obtained using technetium 99m Myoview 31.9 mCi stress and 10.72 mCi at rest. Resting and stress imaging in supine and prone positions demonstrate no definite evidence of fixed or reversible perfusion defects. There is increased transient ischemic dilatation ratio (TID 1.36), suggestive of possible multivessel disease or balanced ischemia. Gated imaging demonstrates normal global and regional LV systolic function. LVEF is calculated at 64%. Conclusion: No definite evidence of fixed or reversible perfusion defects. There is increased transient ischemic dilatation ratio (TID 1.36), suggestive of possible multivessel disease or balanced ischemia. Gated imaging demonstrates normal global and regional LV systolic function. LVEF is calculated at 64%. Electronically signed by : Kari Ontiveros MD 06/17/2023 11:42:31
--- NOTE | 2023-06-14 07:19 | CA_ITS ---
APPROVED REPORT EXAM: Comprehensive 2D, Doppler, and color-flow Echocardiogram Automotive Electrician: Samara Washburn CRT Ht: 5 ft 6 in Wt: 158lbs BSA: 1.81 BP: 117/73 mmHg Indications: Shortness of Breath, Fatigue 2D Dimensions LA Volume 23.70 mL LA Volume Index 12.80 mL/m2 (M/F) 16-34 M-Mode Dimensions RVDd 3.22 cm (0.9-2.6) LA Diam 2.83 cm (1.9-4.0) LVDd 3.47 cm (3.5-5.7) LVDs 2.29 cm (3.5-5.7) IVSd 0.97 cm (0.6-1.1) PWd 0.82 cm (0.6-1.1) EF (Teich) 64.10% FS 34.00% EDV (Teich) 49.80 mL ESV (Teich) 17.90 mL LV Diastology E Decel Time 430 (160-240 msec) E/A Ratio 0.55 MED A' 11.80 cm/s LAT A' 16.90 cm/s Aortic Valve AO Peak GR. 6.80 mmHg Mitral Valve MV A Velocity 103.0 (40-130 cm/s) E/A Ratio 0.55 Tricuspid Valve TR P. Velocity 170.00 cm/s Left Ventricle The left ventricle is normal size. The left ventricular systolic function is normal. The left ventricular ejection fraction is within the normal range. There is increased LV wall thickness. There is normal LV segmental wall motion. Transmitral Doppler flow pattern suggests impaired LV relaxation. LVEF is 60%. Right Ventricle The right ventricle is normal size. The right ventricular systolic function is normal. Atria The left atrium size is normal. The right atrium size is normal. There is no Doppler evidence of interatrial shunt. Aortic Valve The aortic valve is mildly thickened. There is no aortic valvular stenosis. No aortic regurgitation is present. Mitral Valve The mitral valve leaflets are mildly thickened. Trace mitral regurgitation. No evidence of mitral valve stenosis. Tricuspid Valve The tricuspid valve leaflets are thin and pliable. Trace tricuspid regurgitation. There is insufficient TR jet to estimate RVSP. Pulmonic Valve The pulmonary valve is normal in structure. Trace pulmonic regurgitation. Great Vessels The aortic root is normal in size. The ascending aorta is not well-visualized. IVC is normal in size and collapses >50% with inspiration. Pericardium There is no pericardial effusion. Other Information Study Quality: Technically Difficult Conclusion Technically difficult study due to poor acoustic windows. Normal biventricular systolic function. No significant valvular stenosis or regurgitation. Electronically signed by : Kari Ontiveros MD 06/17/2023 22:06:23
[2023-06-14] MEDS: SODIUM CHLORIDE 0.9% 10ML SYR (RAD ONLY) 10 ML IV ×2 (07:25→08:30)
[2023-06-14] MEDS: REGADENOSON 0.4MG/5ML SYRINGE 0.400000000000000022 MG IV (08:30)
--- NOTE | 2023-06-14 08:39 | CA_ITS ---
APPROVED REPORT Exam: Pharmacologic Technologist: Ramona Wagner, Ht: 5 ft 6 in Wt: 158 lbs BSA: 1.81 m2 HR: 68 bpm BP: 160/70 mmHg Rhythm: NSR Medical History Medications: Amlodipine,,,,, Lisinopril,,,,, Omeprazole,,,,, Clonidine,,,,, Atorvastatin,,,,, Carvedilol,,,,, FOLIC ACID,,,,, Tizanidine,,,,, Prozac,,,,, BenaDRYL,,,,, Stress Test Details Test: LEXISCAN Reason for pharmacologic stress test: physical limitation. HR Resting HR: 70 bpm Max Heart Rate (APMHR): 156 bpm Max HR Achieved: 88 bpm Target HR (85% APMHR): 133 bpm % of APMHR: 56 Recovery HR: 78 bpm BP Resting BP: 160.0/70.0 mmHg Max BP: 178.0/90.0 mmHg Recovery BP: 160.0/91.0 mmHg ECG Resting ECG: NSR Stress ECG: No significant ST changes Arrhythmia: None Clinical Exercise duration: 04:05 min Highest Stage Achieved: Stress ECG Conclusion Symptoms: SOA, mild chest tightness, mild nausea. Arrhythmias/Ectopy: None ST-T Changes: No significant ST changes. Conclusion: Unremarkable Lexiscan stress. Myoview images reported separately. Test Summary REST 02:53 . . 70 . 160/ 70 . . Stage 1 01:00 . . 77 . . . . Stage 2 01:00 . . 88 . . . . Stage 3 01:00 . . 83 . 178/ 90 . . Stage 4 01:00 . . 82 . 167/ 80 . . Stage 4 01:05 . . 82 . 167/ 80 . Stop exercise at 04:05 RECOVERY 01:00 . . 79 . 162/ 67 . . RECOVERY 02:00 . . 75 . 165/ 76 . . RECOVERY 03:00 . . 78 . 160/ 91 . . RECOVERY 03:18 . . 76 . 160/ 91 . . Electronically signed by : Kari Ontiveros MD 06/17/2023 11:41:21
[2023-06-14] MEDS: ISOTOPE MYOVIEW (PER STUDY) 1 DOSE IV (09:23)
== END 2023-06-14 23:59 ==
PROVIDERS: PCP Family Medicine; Visit Provider Internal Medicine
DX: R06.00 Dyspnea, unspecified (principal); I20.89 Other forms of angina pectoris; E87.1 Hypo-osmolality and hyponatremia; N17.9 Acute kidney failure, unspecified
CPT/HCPCS: 78452; 93017; 93018; 93306; A9502; J2785

== ENCOUNTER 2023-07-03 07:23 | Day surgery (SDC) | payer MEDICARE, BC, SELFPAY ==
[2023-07-03] VITALS (11 sets, daily range): BP systolic 90–136; BP diastolic 52–85; PULSE 56–67; RESP 14–20; TEMP 36.4; O2SAT 94–100; BMI 26.6
--- NOTE | 2023-07-03 07:05 | IR_ITS ---
APPROVED REPORT Patient Location: Outpatient PROCEDURES Left heart catheterization Left ventriculogram Selective coronary angiogram INDICATION Abnormal Myoview, Angina pectoris, Risk factors for coronary artery disease, Informed consent was obtained prior to the procedure. COMPLICATIONS NONE Estimated Blood Loss: LESS THAN 10 ML TECHNIQUE One percent lidocaine used to anesthetize the right anterior aspect of the wrist. The right radial artery was accessed via the Seldinger technique. A 6 English sheath was placed in the right radial artery. 2.5 mg of Verapamil, 800 mcg of nitroglycerin, 1mg Lidocaine and 5000 U Heparin were given through the arterial sheath. The papa catheter was also used to perform left heart catheterization, left ventriculogram and selective coronary angiogram. At the end of the procedure the sheath was removed good hemostasis was achieved using Traclet band, patient was transferred to the postop holding area in stable condition. ANGIOGRAPHIC RESULTS The left main artery Normal The left anterior descending artery Has proximal 10% luminal irregularities with a mid vessel being highly tortuous and corkscrew like without atherosclerotic plaque The circumflex artery Is nondominant yet still large highly tortuous with a 10 to 20% stenosis in the proximal first obtuse marginal artery The right coronary artery Has proximal 10% luminal irregularities with a mid vessel 30 to 40% concentric stenosis The TERESA ventriculogram reveals Normal 65% The left ventricular end-diastolic pressure 15 mmHg IMPRESSION Mild nonocclusive coronary artery disease involving the LAD and circumflex artery Moderate disease in the right coronary artery Highly tortuous coronary arteries as described above likely secondary to hypertensive heart disease Normal ejection fraction PLAN 1. Aggressive risk factor modification 2. Medical management Electronically signed by : Bryn De Leon MD 07/03/2023 16:19:31
[2023-07-03 08:02] LABS: Basophils # 0.2 K/mm3 (0-0.2); Basophils % 1.3 % (0.1-2.0); Eosinophils % 7.5 % (0.1-12.0); Hematocrit 41.3 % (37.0-47.0); Hemoglobin 13.1 g/dL (12.2-16.2); Lymphocytes # 1.7 K/mm3 (0.7-4.5); Lymphocytes % 12.7 % (10-50); Mean Corpuscular HGB Conc 31.6 g/dL (31.8-35.4); Mean Corpuscular Hemoglobin 35.1 pg (27.0-31.2); Mean Platelet Volume 7.7 fl (7.4-10.4); Monocytes # 0.9 K/mm3 (0.1-1.0); Monocytes % 6.3 % (1.7-9.3); Neutrophils # 9.9 K/mm3 (1.8-7.8); Neutrophils % 72.2 % (37.0-80.0); Platelet Count 498 K/mm3 (142-424); Red Blood Count 3.72 M/mm3 (4.20-5.40); Red Cell Distribution Width 13.8 % (11.5-17.5); White Blood Count 13.7 K/mm3 (4.8-10.8)
[2023-07-03 08:12] LABS: Chloride 103 mmol/L (98-107); Potassium 5.5 mmoL/L (3.5-5.1); Sodium 132 mmol/L (136-145)
[2023-07-03 08:15] LABS: Anion Gap 9.5 mEq/L (5-15); Blood Urea Nitrogen 18 mg/dl (7-17); Calcium 9.3 mg/dl (8.4-10.2); Carbon Dioxide 25 mmol/L (22.0-30.0); Creatinine Clearance Estimated 67 mL/min (50-200); Estimated Glomerular Filt Rate 63 ml/min (>60); GFR (African American) 76 ML/MIN (>60); Glucose 102 mg/dl (74-100)
--- NOTE | 2023-07-03 09:25 | SUR.PREOP ---
Updated pt on the delay of her procedure
[2023-07-03] MEDS: VERAPAMIL 2.5MG/ML 2ML VIAL 2.5 MG IV (10:09)
[2023-07-03] MEDS: diphenhydrAMINE 50MG/ML VIAL 50 MG IV (10:09)
[2023-07-03] MEDS: 0.9 % SODIUM CHLORIDE 500 ML 25 ML IV (10:10)
[2023-07-03] MEDS: LIDOCAINE 1% 10ML MDV 20 ML IJ (10:10)
[2023-07-03] MEDS: HEPARIN 1,000 UNITS/ML 10ML VIAL (CATH LAB) 10000 UNIT IV (10:10)
[2023-07-03] MEDS: HEPARIN 1,000 UNITS/500ML NS (CATH LAB) 3000 UNIT IV (10:10)
[2023-07-03] MEDS: FENTANYL 100MCG/2ML VIAL 50 MCG IV (10:11)
[2023-07-03] MEDS: MIDAZOLAM HCL 1MG/1ML 5ML VIAL 1 MG IV (10:17)
[2023-07-03] MEDS: IOPAMIDOL-370 (76%);100ML BOTTLE 50 ML IV (10:52)
== END 2023-07-03 12:40 | disposition home or self-care (01) ==
PROVIDERS: PCP Family Medicine; Visit Provider Internal Medicine
DX: N17.9 Acute kidney failure, unspecified (principal); R79.89 Other specified abnormal findings of blood chemistry; E87.1 Hypo-osmolality and hyponatremia; R94.39 Abnormal result of other cardiovascular function study; I25.118 Atherosclerotic heart disease of native coronary artery with other forms of angina pectoris; I10 Essential (primary) hypertension; R06.09 Other forms of dyspnea; Z87.891 Personal history of nicotine dependence; Z79.899 Other long term (current) drug therapy
CPT/HCPCS: 80048; 85025; 93458; 99152; C1725; C1769; J1644; Q9967

== ENCOUNTER 2024-01-14 11:37 | Outpatient (CLI) | payer MEDICARE, BC, SELFPAY ==
[2024-01-14 12:16] LABS: Basophils # 0.1 K/mm3 (0-0.2); Basophils % 0.6 % (0.1-2.0); Eosinophils # 0.3 K/mm3 (0.0-0.4); Eosinophils % 2.6 % (0.1-12.0); Hematocrit 41.5 % (37.0-47.0); Lymphocytes # 1.3 K/mm3 (0.7-4.5); Lymphocytes % 13.5 % (10-50); Mean Corpuscular HGB Conc 33.8 g/dL (31.8-35.4); Mean Corpuscular Hemoglobin 33.8 pg (27.0-31.2); Mean Corpuscular Volume 99.9 fl (81-99); Mean Platelet Volume 8.1 fl (7.4-10.4); Monocytes # 0.5 K/mm3 (0.1-1.0); Monocytes % 5.3 % (1.7-9.3); Neutrophils # 7.5 K/mm3 (1.8-7.8); Neutrophils % 78.1 % (37.0-80.0); Platelet Count 454 K/mm3 (142-424); Red Blood Count 4.16 M/mm3 (4.20-5.40); Red Cell Distribution Width 13.8 % (11.5-17.5); White Blood Count 9.7 K/mm3 (4.8-10.8)
[2024-01-14 12:38] LABS: Alanine Aminotransferase 27 U/L (12-78); Albumin Level 4.1 g/dl (3.5-5.0); Albumin/Globulin Ratio 1.4 (1.1-1.8); Alkaline Phosphatase 161 U/L (38-126); Anion Gap 15.3 mEq/L (5-15); Aspartate Amino Transferase 28 U/L (14-36); Bilirubin,Total 0.5 mg/dl (0.2-1.3); Blood Urea Nitrogen 14 mg/dl (7-17); Calcium 9.9 mg/dl (8.4-10.2); Carbon Dioxide 23 mmol/L (22.0-30.0); Chloride 108 mmol/L (98-107); Estimated Glomerular Filt Rate 72 ml/min (>60); GFR (African American) 87 ML/MIN (>60); Globulin 2.9 g/dL (1.3-3.2); Glucose 107 mg/dl (74-100); Iron 97 ug/dL (37-170); Magnesium 1.8 mg/dl (1.6-2.3); Phosphorous 3.3 mg/dl (2.5-4.5); Potassium 4.3 mmoL/L (3.5-5.1); Sodium 142 mmol/L (136-145)
[2024-01-14 13:09] LABS: Thyroid Stimulating Hormone 1.45 uIU/mL (0.465-4.68)
[2024-01-14 13:19] LABS: HIV (1&2) Antibody Rapid NONREACTIVE (NONREACTIVE)
[2024-01-14 13:29] LABS: Vitamin B12 345 pg/mL (239-931)
[2024-01-14 16:22] LABS: Total Iron Binding Capacity 309 ug/dL (265-497)
[2024-01-15 09:20] LABS: HBsAg Screen Negative (Negative); HCV Ab Non Reactive (Non Reactive); Hep A Ab, IGM Negative (Negative); Hep B Core Ab, IgM Negative (Negative)
[2024-01-15 16:14] LABS: Deamidated Gliadin Abs, IgA 6 units (0-19); Deamidated Gliadin Abs, IgG 3 units (0-19); Tissue Transglutaminase IgA Ab <2 U/mL (0-3); Tissue Transglutaminase IgG Ab <2 U/mL (0-5)
[2024-01-16 09:33] LABS: Endomysial IgA Antibody Negative (Negative)
[2024-01-17 09:14] LABS: Reticulin IgA Antibody Negative titer (Neg:<1:2.5)
[2024-02-18 15:57] LABS: Antinuclear Antibodies (ANA) NEGATIVE
== END 2024-01-14 23:59 | disposition home or self-care (01) ==
LOC: LAB 11:39
PROVIDERS: PCP Family Medicine; Visit Provider Student in an Organized Health Care Education/Training Program
DX: K30 Functional dyspepsia (principal); K21.9 Gastro-esophageal reflux disease without esophagitis; R09.A2 Foreign body sensation, throat; R06.00 Dyspnea, unspecified; R10.32 Left lower quadrant pain
CPT/HCPCS: 36415; 80053; 80074; 82607; 82746; 83516; 83540; 83550; 83735; 84100; 84443; 84630; 85025; 86038; 86225; 86235; 86255; 86256; 87389

== ENCOUNTER 2024-01-29 09:28 | Day surgery (SDC) | payer MEDICARE, SELFPAY ==
[2024-01-27 14:09] VITALS: BMI 27.4
[2024-01-29] MEDS: 0.9 % SODIUM CHLORIDE 1000ML 1,000 ML 25 ML IV (10:09)
[2024-01-29 10:14] VITALS: BP 162/91; PULSE 65; RESP 18; TEMP 36.1; O2SAT 98; BMI 28.3
[2024-01-29 11:27] VITALS: O2SAT 100
--- NOTE | 2024-01-29 11:34 | EXP.HP ---
History of Present Illness *Admission Date: 01/29/24 *Reason for visit:: Pyrosis/screening/family history of colon cancer *History of present illness: Mrs. Davis is a 64-year-old female who is here for diagnostic upper endoscopy and screening colonoscopy secondary to pyrosis and family history of colon cancer the examination is deemed medically necessary for EGD and colonoscopy. The patient has been seen, interviewed and examined prior to the procedure by both myself and the anesthesia provider. [facility] Disclaimer: The information contained in this section may have been updated after the patient was seen, as this information can be updated by other users. Medical History (Updated 01/29/24 @ 11:36 by Phillip Rosario II, MD) History of COPD History of tumor History of endometriosis Hyponatremia Dyspnea Atypical angina Surgical History H/O colonoscopy History of tonsillectomy and adenoidectomy History of oral surgery History of foot surgery History of total hysterectomy Family History Other Family history of cerebrovascular accident (CVA) Family history of colon cancer Family history of throat cancer Social History Smoking Status: Former smoker tobacco type: cigarettes packs per day: 1 alcohol intake: current alcohol intake frequency: 3 or more drinks per day substance use type: marijuana current occupational status: employed Travel in the last 8 weeks: None caffeine: Yes Other Medical History Have you received the Flu Vaccine for this season: No Have you received the Pneumonia Vaccine: No Review of Systems Review of Systems Review of systems (narrative): Negative *Cardiovascular Comments: Negative *Gastrointestinal Comments: Negative *Genitourinary Comments: Negative *Musculoskeletal Comments: Negative *Neurologic Comments: Negative Meds Home Medications and Allergies Home Medications ?Medication ?Instructions ?Recorded ?Confirmed ?Type fluoxetine 40 mg capsule (Prozac) 20 mg PO TID Depression 08/09/17 01/27/24 History diphenhydramine HCl 25 mg capsule 75 mg PO HS SLEEP 04/10/18 01/27/24 History (Benadryl) carvedilol 12.5 mg tablet 12.5 mg PO BID #60 tabs 06/10/23 01/27/24 Rx lisinopril 20 mg tablet 20 mg PO BID 06/10/23 01/27/24 History tizanidine 4 mg tablet 4 mg PO Q8H PRN Muscle Pain 06/10/23 01/27/24 History aspirin 81 mg tablet,delayed 81 mg PO DAILY #30 tabs 06/20/23 01/27/24 Rx release (Adult Aspirin Regimen) atorvastatin 40 mg tablet 40 mg PO DAILY #90 tabs 07/10/23 01/27/24 Rx oxybutynin chloride 10 mg 10 mg PO DAILY PRN . 07/10/23 01/27/24 History tablet,extended release 24 hr albuterol sulfate 90 mcg/actuation 1 puff inhalation Q6HP PRN soa 01/14/24 01/27/24 History aerosol inhaler famotidine 20 mg tablet 40 mg (2 x 20 mg) PO HS #30 tabs 01/14/24 01/27/24 Rx furosemide 20 mg tablet 20 mg PO DAILY 01/14/24 01/27/24 History omeprazole 20 mg capsule,delayed 40 mg (2 x 20 mg) PO .in morning 01/14/24 01/27/24 Rx release #30 caps rosuvastatin 5 mg tablet (Crestor) 5 mg PO DAILY 01/14/24 01/27/24 History New Prescriptions to Start Prescriptions: Allergies Allergy/AdvReac Type Severity Reaction Status Date / Time Penicillins Allergy Intermediate Hives Verified 01/29/24 10:10 lorazepam [From Ativan] AdvReac Mild Unknown Verified 01/29/24 10:10 allergy reaction NSAIDS (Non-Steroidal AdvReac Mild Diarrhea Verified 01/29/24 10:10 Anti-Inflamma Exam Data for Last 24 hours Vital signs and Labs for Last 24 Hours: Temp Pulse Resp BP Pulse Ox O2 Del Method O2 Flow Rate 97 F L 65 18 162/91 H 98 Nasal Cannula 5 01/29/24 10:14 01/29/24 10:14 01/29/24 10:14 01/29/24 10:14 01/29/24 10:14 01/29/24 11:27 01/29/24 11:27 I & O for Last 24 hours: Intake & Output 01/26/24 01/27/24 01/28/24 01/29/24 22:59 23:59 23:59 23:59 Weight 170 lb 170 lb *Routine HEENT Exam Head: Present normocephalic Eye: Present EOMI and PERRL ENT: Present mucous membranes moist *Routine Neck Exam Neck: Present supple *Routine Respiratory Exam Respiratory: Present CTA bilaterally *Routine Cardiovascular Exam Cardiovascular: Present RRR *Routine Abdominal Exam Abdominal: Present soft and normoactive bowel sounds; Absent tenderness *Routine Rectal Exam Rectal:: deferred *Routine Genitalia Exam Genitalia:: deferred *Routine Extremities Exam Extremities: Absent cyanosis, clubbing or edema *Routine Skin Exam Skin: Present warm; Absent rash *Routine Neurological Exam Neurological: Present alert and oriented X3 Assessment and Plan *Assessment and plan (1) Pyrosis: Status: Acute Category: Medical Code(s): R12 - Heartburn (2) Family history of colon cancer: Status: Acute Category: Medical Code(s): Z80.0 - Family history of malignant neoplasm of digestive organs Plan A/P: 1. Pyrosis?persistent for upper endoscopy and strong family history of colon cancer (brother and sister) for colonoscopy (last colonoscopy March 2018 more than 5 years ago) is the preprocedural diagnosis. The patient will be anesthetized/sedated using MAC sedation. The patient has been seen and examined. Cardiac and lung assessment prior to the examination is stable. Proceed with planned EGD and colonoscopy
--- NOTE | 2024-01-29 11:37 | P.PCN_ITS ---
[facility] Procedure Note Date: 01/29/24 Time: 11:45 Procedure Note:: Upper Endoscopy Procedure Report: Esophagogastroduodenoscopy with cold biopsies and TTS balloon dilation Endoscopost: Phillip Rosario II, MD Referring Physician: Gilbert Emerson MD Date of Procedure: January 29, 2024 Equipment: Olympus GIF 190 standard upper endoscope Sedation: MAC sedation Indications: Mrs. Short is a 64-year-old female who is here with pyrosis and burning of the mouth, lips and from the epigastrium proximal in the mid retrosternal region. She has had some globus sensation and dysphagia. She does not report heartburn or reflux. She has seen ENT who felt this was duodenal/bile proximal reflux. The patient does take omeprazole and famotidine. She reports no abdominal pain. Procedure: Prior to the procedure, a history and physical exam was performed, and patient's medications and allergies were reviewed. The risks, benefits and alternatives of the sedation and procedure were discussed with the patient. All questions were answered and informed consent was obtained. The patient was brought to the procedure room. Patient identification and proposed procedure were verified by the physician and the nurse. The patient was placed in a left lateral decubitus position and the scope was passed under direct vision. Throughout the procedure, the patient's blood pressure, pulse, and oxygen saturations were monitored continuously. The upper GI endoscopy was accomplished without difficu lty. The patient tolerated the procedure well. Findings: The scope was passed directly into the upper esophagus and advanced to the third portion of the duodenum. The post bulbar duodenum and duodenal bulb were normal with normal mucosa and conniventes. The scope was withdrawn through a normal duodenal bulb and pylorus into the stomach. There was moderate linear reactive gastropathy (of the antrum) and mild to moderate chronic gastritis of the body and fundus). Cold biopsies were taken along the lesser curvature to rule out H. pylori. Upon retroflexion there was a small 2 to 3 cm hiatal hernia. The scope was then withdrawn into the esophagus. There was no evidence of reflux esophagitis or Alfred's. There was a normal appearing Z-line. There were tertiary contractions and evidence of moderate esophageal dysmotility. The entire esophagus was dilated to 18 mm with a TTS hydrostatic balloon. There was resistance at the cricopharyngeus. The remainder of the esophageal mucosa was normal. Impression: 1. 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 Nonerosive GERD with moderate esophageal dysmotility and 2 to 3 cm hiatal hernia 3. Bile reflux with moderate linear reactive gastropathy and chronic gastritis Plan: I do feel that she has primarily bile reflux. Most of this bile reflux with symptomatic esophageal pyrosis and spasm are related to and driven by lower intestinal gas pressure gradients/high gas pressure buildup resulting in backflow of bile and peptic fluid from the duodenum into the stomach (duodenal reflux). This gas production (carbon dioxide, hydrogen, methane, etc.) from the lower intestinal tract is the byproduct of colonic bacterial fermentation. This colonic fermentation occurs when there is more carbohydrate (dietary starches, sugars and high residue plant fiber) substrate that does not get digested (in the middle or small intestine) or occurs when there is colonic fecal buildup and colonic bacterial overgrowth. This indeed leads to bloating and the gas pressure buildup with gas pressure gradients that do drive backflow. We will discuss fiber bowel regimen. I will likely place her on Iberogast. I will check biopsies.
--- NOTE | 2024-01-29 11:51 | P.PCN_ITS ---
[facility] Procedure Note Date: 01/29/24 Time: 12:13 Procedure Note:: Colonoscopy Procedure Report: Colonoscopy with cold snare polypectomy and cold biopsy Endoscopist: Phillip Rosario II, MD Referring physician: Gilbert Emerson MD Date of Procedure: January 29, 2024 Equipment: Olympus 190 variable stiffness pediatric colonoscope Sedation: MAC sedation Indication: Mrs. Short is a 64-year-old female who is here for follow-up screening/surveillance colonoscopy. The patient does state that her brother and sister had colon cancer. She has had longstanding alternating irritable bowel syndrome. The patient reports no rectal bleeding or weight loss. Her last colonoscopy with [place] in March 2018 was normal to the terminal ileum. Procedure: Prior to the procedure, a history and physical exam was performed, and patient's medications and allergies were reviewed. The risks, benefits and alternatives of the sedation and procedure were discussed with the patient. All questions were answered and informed consent was obtained. The patient was brought to the procedure room. Patient identification and proposed procedure were verified by the physician and the nurse. The patient was placed in a left lateral decubitus position and the scope was passed under direct vision. Throughout the procedure, the patient's blood pressure, pulse, and oxygen saturations were monitored continuously. The colonoscopy was accomplished without difficulty. The patient tolerated the procedure well. Findings: On digital rectal examination there was normal rectal tone. There were no external hemorrhoids. The colonoscope was introduced through the anal canal to the rectum and advanced to the cecum. The ileocecal valve and appendiceal orifice were identified. The scope was advanced a short distance into the ileum which appeared grossly normal. The scope was then withdrawn into the colon. The re were 3 diminutive polyps (ascending x 1 (2 to 3 mm), descending x 1 (4 mm) and rectosigmoid (3 mm)). The smallest polyp was removed initially with cold biopsy. The other polyps were removed via cold snare polypectomy. The remaining cecum, ascending, transverse, descending, sigmoid and rectum were grossly normal. There were no other mucosal abnormalities identified. Upon retroflexion within the rectum there were grade 1 internal hemorrhoids.The preparation was fair to good throughout with [place] Preparation Score of 7 out of 9. There was quite a bit of plant fibrous residue. The cecal time was 12 minutes. Impression: 1. Diminutive colonic polyps x 3 Plan: I will follow-up the polyp histology and recommend repeat surveillance colonoscopy again in 5 years. I would encourage a fiber bowel regimen.
[2024-01-29 12:19] VITALS: BP 132/76; PULSE 67; RESP 16; TEMP 36.3; O2SAT 98
[2024-01-29 12:29] VITALS: BP 154/75; PULSE 63; RESP 18; O2SAT 99
[2024-01-29 12:39] VITALS: BP 172/90; PULSE 65; RESP 16; O2SAT 99
[2024-01-29 12:49] VITALS: BP 165/92; PULSE 62; RESP 16; O2SAT 99
--- NOTE | 2024-01-29 15:09 | SUR.PHASEII ---
1219: Pt arrived to [place]. Per report from Heladio William RN and Lilliana Pena CRNA, the pt's IV infiltrated during the case and a new IV was started in proximal right wrist. Upon assessment of infiltration site, skin was red and blanchable, no swelling noted. Warm compress placed per Lilliana Pena CRNA request. 1250: Site reassessed. No swelling and site still red and blanchable. Pt educated on s/s of infection and when to seek medical attention. D/C home per MD order.
== END 2024-01-29 13:00 | disposition home or self-care (01) ==
PROVIDERS: PCP Family Medicine; Visit Provider Internal Medicine Gastroenterology
PROC: 0DJ08ZZ Inspection of Upper Intestinal Tract, Via Natural or Artificial Opening Endoscopic (ICD-10-PCS; CPT 43235; principal; 2024-01-29 10:30)
DX: R12 Heartburn (principal); Z80.0 Family history of malignant neoplasm of digestive organs; Q31.0 Web of larynx; K21.9 Gastro-esophageal reflux disease without esophagitis; K22.4 Dyskinesia of esophagus; K31.9 Disease of stomach and duodenum, unspecified; K29.50 Unspecified chronic gastritis without bleeding; K63.5 Polyp of colon
CPT/HCPCS: 43239; 43249; 45380; 45385; C1726; J2704; J7030

== ENCOUNTER 2024-08-05 14:55 | Outpatient (CLI) | payer MEDICARE, SELFPAY ==
--- NOTE | 2024-08-05 15:03 | MM_ITS ---
PROCEDURE INFORMATION: Exam: MG Bilateral Screening 3D Mammography Exam date and time: 08/05/2024 3:04 PM Age: 64 years old Clinical indication: Screening examination TECHNIQUE: Imaging protocol: Bilateral Screening tomosynthesis and 2D mammography including computer-aided detection (CAD) when performed. COMPARISON: 1. MG [facility] MAMMO CATHYN DIGITL BILAT 07/15/2013 11:56 AM 2. MG MA MAMMO SCRN DIGITL BILAT 06/29/2011 11:02 AM FINDINGS: MAMMOGRAPHY: Breast composition: There are scattered areas of fibroglandular density. Mass: None. Architectural distortion: None. Calcifications: No suspicious calcifications. Asymmetric density: None. Skin thickening: None. Axillary adenopathy: None. IMPRESSION: No mammographic evidence of malignancy. Annual screening is recommended unless otherwise clinically indicated. ASSESSMENT: BI-RADS 1, Negative.
--- NOTE | 2024-08-05 15:04 | CT_ITS ---
FINAL REPORT TECHNIQUE: Axial CT images of the chest were obtained without contrast. Coronal and sagittal reformatted images were obtained and reviewed. Low-dose protocol was utilized. This study was performed with techniques to keep radiation doses as low as reasonably achievable (ALARA). Individualized dose reduction techniques using automated exposure control or adjustment of mA and/or kV according to the patient's size were employed. CLINICAL HISTORY: SCREENING Previous smoker , quit 16 months ago , 1-2 PPD x 40 years COMPARISON: None FINDINGS: CT CHEST WITHOUT, LOW DOSE SCREENING CTDl vol(mGy): 2.90 DLP (mGy-cm): 108.38 There is no axillary adenopathy. There is no hilar or mediastinal adenopathy. The heart size is normal. There are moderate calcifications of the aortic arch. There is no pericardial or pleural effusion. Lung window images demonstrate biapical pleural and parenchymal scarring. There is calcified granuloma in the left lower lobe. There is an ill-defined nodule in the right lower lobe measuring 4 mm and there may be a 2 mm satellite nodule. This is best seen on image 55 of series 4. Limited images of the upper abdomen are unremarkable. IMPRESSION: Ill-defined 4 mm right lower lobe nodule with possible 2 mm satellite nodule. Lung RADS category 2. Recommend 12 month follow-up low-dose chest CT per Fleischner criteria. Reviewed, Interpreted and Dictated by Christopher Rivera MD Transcribed by Lashell Perez Authenticated and [facility]
== END 2024-08-05 23:59 | disposition home or self-care (01) ==
LOC: RAD 14:55
PROVIDERS: PCP Family Medicine; Visit Provider Family Medicine
DX: Z12.31 Encounter for screening mammogram for malignant neoplasm of breast (principal); R92.313 Mammographic fatty tissue density, bilateral breasts; R91.1 Solitary pulmonary nodule; Z87.891 Personal history of nicotine dependence
CPT/HCPCS: 71271; 77063; 77067